=== PATIENT | male | born 1975 ===

== ENCOUNTER 2017-11-22 09:20 | Emergency (ER) | payer OTHER ==
[2017-11-22 09:27] VITALS: BMI 29.5
[2017-11-22 09:28] VITALS: TEMP 98.9; O2SAT 98
[2017-11-22] MEDS ORDERED: Iohexol 240 (50 ml) PO ONE (10:25)
[2017-11-22] MEDS ORDERED: Sodium Chloride 0.9% 1,000 ML IV STA (10:26)
--- NOTE | 2017-11-22 10:53 | ED PDOC ---
HPI: Abdomen Time Seen by Provider: 11/22/17 09:40 Chief Complaint (Nursing): Abdominal Pain Chief Complaint (Provider): abdominal pain History Per: Patient History/Exam Limitations: no limitations Onset/Duration Of Symptoms: Days (x1) Current Symptoms Are (Timing): Still Present Location Of Pain/Discomfort: LLQ Quality Of Discomfort: Dull Associated Symptoms: denies: Fever, Chills Additional Complaint(s): Dereck Pinto is a 42 year old male, with no significant past medical history, who presents to the emergency department complaining of left lower abdominal pain onset since yesterday. Patient states at onset pain was dull but has increased since. He denies any fever, chills, vomiting, or other medical complaints. PMD: None provided. Past Medical History Reviewed: Historical Data, Nursing Documentation, Vital Signs Vital Signs: Last Vital Signs Temp 98.9 F 11/22/17 09:27 Pulse 69 11/22/17 14:44 Resp 18 11/22/17 14:44 BP 127/88 11/22/17 14:44 Pulse Ox 98 11/22/17 18:52 - Medical History PMH: No Chronic Diseases - Surgical History Surgical History: No Surg Hx - Family History Family History: States: Unknown Family Hx - Social History Current smoker - smoking cessation education provided: No Alcohol: Social Drugs: Denies - Home Medications Home Medications: Ambulatory Orders Medication Instructions Recorded Ciprofloxacin HCl [Cipro] 500 mg PO BID #20 tab 11/22/17 Metronidazole [Flagyl] 500 mg PO TID #30 tablet 11/22/17 - Allergies Allergies/Adverse Reactions: Allergies Allergy/AdvReac Type Severity Reaction Status Date / Time No Known Allergies Allergy Verified 11/22/17 09:33 Review of Systems ROS Statement: Except As Marked, All Systems Reviewed And Found Negative Constitutional: Negative for: Fever, Chills Gastrointestinal: Positive for: Abdominal Pain (LLQ) Physical Exam - Reviewed Nursing Documentation Reviewed: Yes Vital Signs Reviewed: Yes - Physical Exam Appears: Positive for: No Acute Distress Head Exam: Positive for: ATRAUMATIC, NORMAL INSPECTION, NORMOCEPHALIC Skin: Positive for: Normal Color, Warm, Dry Eye Exam: Positive for: Normal appearance, EOMI, PERRL ENT: Positive for: Normal ENT Inspection Neck: Positive for: Painless ROM Cardiovascular/Chest: Positive for: Regular Rate, Rhythm. Negative for: Murmur Respiratory: Positive for: Normal Breath Sounds. Negative for: Respiratory Distress Gastrointestinal/Abdominal: Positive for: Bowel Sounds, Soft, Tenderness (LLQ). Negative for: Mass, Distended, Guarding, Rebound, Hernia, Asicites Back: Positive for: Normal Inspection Extremity: Positive for: Normal ROM (upper and lower extremities). Negative for : Deformity, Swelling Neurologic/Psych: Positive for: Alert, Oriented. Negative for: Motor/Sensory Deficits - Laboratory Results Result Diagrams: 11/22/17 10:34 11/22/17 10:34 - ECG O2 Sat by Pulse Oximetry: 98 (RA) Pulse Ox Interpretation: Normal Medical Decision Making Medical Decision Making: Time: 09:46 Initial Impression: abdominal pain r/o appendicitis and diverticulitis. Initial Plan: --Abd Pelvis PO & IV Contrast [CT] --Beta-HCG, Quantitative --CMP --CBC w/ differential --Sodium Chloride 1,000 ml IV 999 mls/hr --Omnipaque 240 50 ml PO --Toradol 30 mg IV --Blood culture --Reevaluation Time: 12:35 CT abd/Pelvis FINDINGS: LOWER THORAX: Unremarkable. LIVER: Unremarkable. No gross lesion or ductal dilatation. GALLBLADDER AND BILE DUCTS: Unremarkable. PANCREAS: Unremarkable. No gross lesion or ductal dilatation. SPLEEN: Unremarkable. ADRENALS: Unremarkable. No mass. KIDNEYS AND URETERS: Unremarkable. No hydronephrosis. No solid mass. VASCULATURE: Unremarkable. No aortic aneurysm. BOWEL: Inflammatory changes affecting the left nestor colon extending from the proximal descending colon to the sigmoid with sparing of the rectum. APPENDIX: A normal appendix is visualized. She PERITONEUM: Unremarkable. No free fluid. No free air. LYMPH NODES: Unremarkable. No enlarged lymph nodes. BLADDER: Unremarkable. REPRODUCTIVE: Unremarkable. BONES: No acute fracture. OTHER FINDINGS: None. IMPRESSION: Colitis affecting descending colon and sigmoid. These acute findings likely infectious/ inflammatory. No adjacent loculated air, free air, drainable collection noted. 14:35 -Patient reports feeling better and tolerated PO. Patient is medically stable and will be discharged home with prescription for antibiotics, first dose will be given here. Patient advised to follow up with clinic and GI as an outpatient for colitis. ----- Scribe Attestation: Documented by Dagoberto Castillo, acting as a scribe for Sahara Weiner MD. Provider Scribe Attestation: All medical record entries made by the Scribe were at my direction and personally dictated by me. I have reviewed the chart and agree that the record accurately reflects my personal performance of the history, physical exam, medical decision making, and the department course for this patient. I have also personally directed, reviewed, and agree with the discharge instructions and disposition. Disposition - Clinical Impression Clinical Impression: Abdominal pain, Colitis - Patient ED Disposition Is Patient to be Admitted: No Counseled Patient/Family Regarding: Studies Performed, Diagnosis, Need For Followup - Disposition Referrals: [facility] [Outside] [facility] [Outside] Harrison Ling MD [Staff Provider] - Disposition: Routine/Home Disposition Time: 14:20 Condition: IMPROVED Additional Instructions: follow up in the clinic and with GI this week return to ED with any worsening or concerning symptoms Prescriptions: Ciprofloxacin HCl [Cipro] 500 mg PO BID #20 tab Metronidazole [Flagyl] 500 mg PO TID #30 tablet Instructions: Stomach Ache and Stomach Upset Forms: [employer] (Montenegrin)
[2017-11-22 11:00] LABS: BASO % 0.2 % (0.0-2.0); EOS % 0.4 % (0.0-4.0); HEMOGLOBIN 14.3 g/dL (12.0-18.0); LYMPH # 1.1 K/uL (1.0-4.3); LYMPH % 14.2 % (20.0-40.0); MEAN CELL VOLUME 94.3 fl (80.0-94.0); MEAN CORPUSCULAR HEMOGLOBIN 32.5 pg (27.0-31.0); MEAN CORPUSCULAR HGB CONC 34.4 g/dL (33.0-37.0); MEAN PLATELET VOLUME 10.3 fl (7.2-11.7); MONO # 0.7 K/uL (0.0-0.8); MONO % 8.5 % (0.0-10.0); NEUT # 6.1 K/uL (1.8-7.0); NEUT % 76.7 % (50.0-75.0); NRBC % 0.2 % (0.0-0.0); RBC 4.4 Mil/uL (4.40-5.90); RED CELL DISTRIBUTION WIDTH 13.7 % (11.5-14.5); WHITE BLOOD COUNT 7.9 K/uL (4.8-10.8)
[2017-11-22 11:01] LABS: ALB/GLOB RATIO 1.5 (1.0-2.1); ALBUMIN 4.4 g/dL (3.5-5.0); ALT/SGPT 34 U/L (21-72); AST/SGOT 24 U/L (17-59); BLOOD UREA NITROGEN 15 mg/dl (9-20); GFR AFRICAN-AMERICAN > 60; GFR NON-AFRICAN AMERICAN > 60
[2017-11-22] MEDS ORDERED: Iohexol 300 100 ML IJ ONE (11:49)
--- NOTE | 2017-11-22 12:37 | CT ---
Date of service: 11/22/2017 PROCEDURE: CT Abdomen and Pelvis with contrast HISTORY: Left lower quadrant abdominal pain. COMPARISON: None. TECHNIQUE: Contrast dose: Radiation dose: Total exam DLP = mGy-cm. This CT exam was performed using one or more of the following dose reduction techniques: Automated exposure control, adjustment of the mA and/or kV according to patient size, and/or use of iterative reconstruction technique. FINDINGS: LOWER THORAX: Unremarkable. LIVER: Unremarkable. No gross lesion or ductal dilatation. GALLBLADDER AND BILE DUCTS: Unremarkable. PANCREAS: Unremarkable. No gross lesion or ductal dilatation. SPLEEN: Unremarkable. ADRENALS: Unremarkable. No mass. KIDNEYS AND URETERS: Unremarkable. No hydronephrosis. No solid mass. VASCULATURE: Unremarkable. No aortic aneurysm. BOWEL: Inflammatory changes affecting the left nestor colon extending from the proximal descending colon to the sigmoid with sparing of the rectum. APPENDIX: A normal appendix is visualized. She PERITONEUM: Unremarkable. No free fluid. No free air. LYMPH NODES: Unremarkable. No enlarged lymph nodes. BLADDER: Unremarkable. REPRODUCTIVE: Unremarkable. BONES: No acute fracture. OTHER FINDINGS: None. IMPRESSION: Colitis affecting descending colon and sigmoid. These acute findings likely infectious/ inflammatory. No adjacent loculated air, free air, drainable collection noted.
[2017-11-22] MEDS ORDERED: metroNIDAZOLE 500mg/100ml NS 100 ML IVPB STA (14:29)
[2017-11-22] MEDS ORDERED: Potassium Chloride 20 mEq ER Tab PO ONE ×2 (14:29→14:35)
[2017-11-22 14:53] VITALS: BP 127/88; PULSE 69; RESP 18
== END 2017-11-22 14:54 | disposition home or self-care (01) ==
LOC: H.ER 09:20
DX: K52.9 Noninfective gastroenteritis and colitis, unspecified (principal)
CPT/HCPCS: 74177; 80053; 85025; 87040; 96360; 99283; J1885; J7030; Q9966; Q9967